=== PATIENT | male | born 1970 | race Caucasian/White ===

== ENCOUNTER 2017-08-09 13:48 | Observation (INO) | payer OTHER ==
--- NOTE | 2017-08-09 14:04 | CPEKG ---
Heart Rate: 68 RR Interval: 882 P-R Interval: 132 QRSD Interval: 82 QT Interval: 368 QTC Interval: 392 P [place]: 33 QRS [place]: 29 T Wave [place]: -4 EKG Severity - BORDERLINE ECG - EKG Impression: SINUS RHYTHM EKG Impression: BORDERLINE T ABNORMALITIES, INFERIOR LEADS Electronically Signed By: Michoacano Marion 09-Aug-2017 14:15:34
--- NOTE | 2017-08-09 14:11 | CPEKG ---
Heart Rate: 80 RR Interval: 750 P-R Interval: 140 QRSD Interval: 78 QT Interval: 372 QTC Interval: 430 P [place]: 34 QRS [place]: 25 T Wave [place]: 1 EKG Severity - NORMAL ECG - EKG Impression: SINUS RHYTHM Electronically Signed By: Michoacano Marion 09-Aug-2017 14:16:15
[2017-08-09] MEDS ORDERED: NS 500 ML IV ONE (14:18)
--- NOTE | 2017-08-09 14:21 | EDPHY ---
H & P Stated Complaint: CP and palipitations, abnormal stress test yesterday Time Seen by Provider: 08/09/17 13:52 HPI/ROS: CHIEF COMPLAINT: Chest discomfort, shortness of breath, irregular heart rate HISTORY OF PRESENT ILLNESS: Patient is a 46-year-old healthy man who was called in by his primary is office. The patient has had abnormal shortness of breath and chest "soreness" for about a week. He had an EKG done the office that showed new T-wave abnormalities compared to 1 year previous. He did had a treadmill stress test and yesterday is read as abnormal with inferior depressions during exercise. He was asymptomatic at that time and so follow-up testing with a nuclear scan was recommended however this morning he developed some minor chest pain and lightheadedness he felt that his heartbeat was irregular. He called his primary Dr. Quiles is office and was told to come to the ER. He took aspirin prior to arrival. REVIEW OF SYSTEMS: Constitutional: denies: chills, fever, recent illness, recent injury EENTM: denies: blurred vision, double vision, nose congestion Respiratory: denies: cough, shortness of breath Cardiac: See HPI Gastrointestinal/Abdominal: denies: abdominal pain, diarrhea, nausea, vomiting, blood streaked stools Genitourinary: denies: dysuria, frequency, hematuria, pain Musculoskeletal: denies: joint pain, muscle pain Skin: denies: lesions, rash, jaundice, bruising Neurological: denies: headache, numbness, paresthesia, tingling, dizziness, weakness Hematologic/Lymphatic: denies: blood clots, easy bleeding, easy bruising Immunologic/allergic: denies: HIV/AIDS, transplant EXAM: GENERAL: Well-appearing, well-nourished and in no acute distress. HEAD: Atraumatic, normocephalic. EYES: Pupils equal round and reactive to light, extraocular movements intact, sclera anicteric, conjunctiva are normal. ENT: TMs normal, nares patent, oropharynx clear without exudates. Moist mucous membranes. NECK: Normal range of motion, supple without lymphadenopathy or JVD. LUNGS: Breath sounds clear to auscultation bilaterally and equal. No wheezes rales or rhonchi. HEART: Regular rate and rhythm without murmurs, rubs or gallops. ABDOMEN: Soft, nontender, normoactive bowel sounds. No guarding, no rebound. No masses appreciated. BACK: No CVA tenderness, no spinal tenderness, step-offs or deformities EXTREMITIES: Normal range of motion, no pitting or edema. No clubbing or cyanosis. NEUROLOGICAL: Cranial nerves II through XII grossly intact. Normal speech, normal gait. 5/5 strength, normal movement in all extremities, normal sensation PSYCH: Normal mood, normal affect. SKIN: Warm, dry, normal turgor, no visible rashes or lesions. Source: Patient Exam Limitations: No limitations - Personal History Current Tetanus/Diphtheria Vaccine: Yes Current Tetanus Diphtheria and Acellular Pertussis (TDAP): Yes Tetanus Vaccine Date: < 10 years - Medical/Surgical History Hx Asthma: No Hx Chronic Respiratory Disease: No Hx Diabetes: No Hx Cardiac Disease: No Hx Renal Disease: No Hx Cirrhosis: No Hx Alcoholism: No Hx HIV/AIDS: No Hx Splenectomy or Spleen Trauma: No Other PMH: DVTs - Family History Significant Family History: No pertinent family hx - Social History Smoking Status: Never smoked Alcohol Use: Sober Drug Use: None Constitutional: Initial Vital Signs Temperature (C) 37 C 08/09/17 13:51 Heart Rate 93 08/09/17 13:51 Respiratory Rate 18 08/09/17 13:51 Blood Pressure 132/102 H 08/09/17 13:51 O2 Sat (%) 95 08/09/17 13:51 O2 Delivery Mode Room Air Allergies/Adverse Reactions: Sulfa (Sulfonamide Antibiotics) Allergy (Severe, Verified 08/09/17 15:14) Rash heparin Allergy (Verified 08/09/17 15:14) Home Medications: Medication Instructions Recorded Aspirin EC [Aspirin EC 325 mg (*)] 325 mg PO DAILY PRN 08/09/17 Ibuprofen [Motrin (*)] 400 mg PO BID PRN 08/09/17 Typhoid Vacc,Live,Attenuated 1 each PO Q2D 08/09/17 [Vivotif] Medical Decision Making - Diagnostics EKG Interpretation: An EKG obtained and was read and documented in trace view. Please see trace view for full reading and report. Sinus rhythm, poor baseline, difficult to tell possible ST-elevation in lead the V3. T-wave inversions inferiorly. A repeat EKG obtained and was read and documented in trace view. Please see trace view for full reading and report. Sinus rhythm, no ST elevation. A repeat EKG obtained and was read and documented in trace view. Please see trace view for full reading and report. Sinus rhythm, no ST elevation Imaging Results: Imaging Impressions Chest X-Ray 08/09/17 14:19 Impression: Hypoventilatory chest with no acute findings. Imaging: Discussed imaging studies w/ call or contact centre coach Radiologist ED Course/Re-evaluation: 2:50 p.m. the patient is currently asymptomatic. I discussed this case with Dr. Kc who was willing to admit but suggest that if it is possible we could do the catheterization now rather than wait till tomorrow. I will call Cardiology to discuss 3:09 p.m. I discussed the case with Dr. Татьяна Meredith. The patient has not been NPO today and so they preferred to do a catheterization tomorrow rather than late in the evening on a Friday. 4:20 p.m. the patient got up to go to the bathroom and upon returning began complaining of some squeezing in his chest. We will perform a repeat EKG and administer nitroglycerin. Differential Diagnosis: Partial list of the Differential diagnosis considered include but were not limited to; acute coronary disease, arrhythmia, anxiety and although unlikely based on the history and physical exam, I also considered PE, dissection, pneumonia. - Data Points Laboratory Results: Laboratory Results 08/09/17 14:05 08/09/17 14:05 08/09/17 08/09/17 08/09/17 14:05 14:05 14:05 WBC 7.30 10^3/uL 10^3/uL (3.80-9.50) RBC 4.80 10^6/uL 10^6/uL (4.40-6.38) Hgb 15.5 g/dL g/dL (13.7-17.5) Hct 43.8 % % (40.0-51.0) MCV 91.3 fL fL (81.5-99.8) MCH 32.3 pg pg (27.9-34.1) MCHC 35.4 g/dL g/dL (32.4-36.7) RDW 12.7 % % (11.5-15.2) Plt Count 215 10^3/uL 10^3/uL (150-400) MPV 11.1 fL fL (8.7-11.7) Neut % (Auto) 68.1 % % (39.3-74.2) Lymph % (Auto) 20.1 % % (15.0-45.0) [place] % (Auto) 8.1 % % (4.5-13.0) Eos % (Auto) 2.6 % % (0.6-7.6) Baso % (Auto) 1.0 % % (0.3-1.7) Nucleat RBC Rel Count 0.0 % % (0.0-0.2) Absolute Neuts (auto) 4.97 10^3/uL 10^3/uL (1.70-6.50) Absolute Lymphs (auto) 1.47 10^3/uL 10^3/uL (1.00-3.00) Absolute Monos (auto) 0.59 10^3/uL 10^3/uL (0.30-0.80) Absolute Eos (auto) 0.19 10^3/uL 10^3/uL (0.03-0.40) Absolute Basos (auto) 0.07 10^3/uL 10^3/uL (0.02-0.10) Absolute Nucleated RBC 0.00 10^3/uL 10^3/uL (0-0.01) Immature Gran % 0.1 % % (0.0-1.1) Immature Gran # 0.01 10^3/uL 10^3/uL (0.00-0.10) PT 13.3 SEC SEC (12.0-15.0) INR 0.99 (0.83-1.16) APTT 26.5 SEC SEC (23.0-38.0) Sodium 145 mEq/L mEq/L (135-145) Potassium 4.7 mEq/L mEq/L (3.5-5.2) Chloride 108 mEq/L mEq/L (97-110) Carbon Dioxide 22 mEq/l mEq/l (22-31) Anion Gap 15 mEq/L mEq/L (8-16) BUN 19 mg/dL mg/dL (7-23) Creatinine 1.2 mg/dL mg/dL (0.7-1.3) Estimated GFR > 60 Glucose 100 mg/dL mg/dL (70-100) Calcium 9.8 mg/dL mg/dL (8.5-10.4) Troponin I < 0.012 ng/mL ng/mL (0.000-0.034) Medications Given: Nitroglycerin (Nitrostat) 0.4 mg SL PRN PRN PRN Reason: Chest Pain Stop: 02/05/18 16:03 Last Admin: 08/09/17 16:34 Dose: 0.4 mg Discontinued Medications Sodium Chloride (Ns) 500 mls @ 1,000 mls/hr IV EDNOW ONE PRN Reason: Protocol Stop: 08/09/17 14:47 Last Admin: 08/09/17 14:35 Dose: 500 mls Departure - Departure Disposition: [facility] Inpatient Acute Clinical Impression: Chest pain Qualifiers: Chest pain type: unspecified Qualified Code(s): R07.9 - Chest pain, unspecified Condition: Fair
[2017-08-09 14:26] LABS: PLATELET COUNT 215 10^3/uL (150-400)
[2017-08-09 14:31] LABS: INR 0.99 (0.83-1.16); PROTIME(PATIENT) 13.3 SEC (12.0-15.0)
[2017-08-09] MEDS ORDERED: ACETAMINOPHEN 325 MG TAB PO PRN (16:04)
[2017-08-09] MEDS ORDERED: NITROGLYCERIN 0.4 MG BTL SL PRN (16:04)
[2017-08-09] MEDS ORDERED: TEMAZEPAM 15 MG CAP PO PRN (16:04)
--- NOTE | 2017-08-09 16:25 | CPEKG ---
Heart Rate: 56 RR Interval: 1071 P-R Interval: 144 QRSD Interval: 82 QT Interval: 412 QTC Interval: 398 P [place]: 20 QRS [place]: 24 T Wave [place]: -6 EKG Severity - BORDERLINE ECG - EKG Impression: SINUS RHYTHM EKG Impression: BORDERLINE T ABNORMALITIES, INFERIOR LEADS Electronically Signed By: Michoacano Marion 09-Aug-2017 16:29:50
--- NOTE | 2017-08-09 22:38 | PDGENHP ---
History and Physical History and Physical: CC: Chest pain HISTORY: This patient comes into the ER today for evaluation of chest pain. He started having a chest pain syndrome approximately 2 weeks ago. The syndrome has consisted of intermittent episodes of a vaguely described pressure-type sensation in the area of the left clavicle at sometimes and at the left sternal border anteriorly at other times. Is never brought on by exertion. It sometimes is made worse when he is lying down and in fact he has it now this evening when he is lying down and as he sits up and lies back down again to eat dinner this evening it gets better up and worse again lying down. It takes tender 15 min for this change to occur. It has been something that has been increasing in frequency and duration and has been present for most of today. Is not aggravated by any particular food or beverage. There is no odynophagia. There is no pleuritic component, dyspnea, cough or fever, upper respiratory symptoms, leg pain or swelling, palpitations. He has never had this particular syndrome in the past. He says this feels quite different than what he describes as functional dyspepsia and irritable bowel syndrome which he blames on a past history of typhoid fever. He was seen in the cardiology clinic 2 days ago and did an exercise treadmill stress test where he went to 10 min without any symptoms, though it is reported that there was some ST segment abnormalities on that stress test. There were plans to have him come black a later for a myocardial perfusion scan test, however as he was having worsening pain at rest today he was route recommended for admission to the hospital for further evaluation. He has no history of heart disease and has never worked with a personal injury attorney before. He is not diabetic or hypertensive and he has had what he recalls as most recently normal cholesterol blood test. He has never been a smoker. He has 1 cousin who had an [place] in his 50s and an aunt who had angina in her late 70s. ROS: A comprehensive 10 system review revealed no other significant findings PAST MEDICAL HISTORY: Typhoid fever FAMILY MEDICAL HISTORY: Heart disease as above SOCIAL HISTORY: lives with his and kids. No tobacco alcohol or drugs Is a software product specialist for apps MEDICATIONS: The patients list has been reconciled by our clinical pharmacist in the EMR. I have reviewed the list and ordered appropriate medicines. PHYSICAL EXAMINATION: Vital Signs: Stable without fever Accounting Administrator: Sinus rhythm Examination: General: alert, oriented, good mentation, relaxed Skin: warm, dry, good color, no rash HEENT: normal Neck: no mass or jvd Resps: relaxed Lungs: clear breath sounds Heart: regular, no murmur Abdomen: soft, nondistended, nontender, +BS, no mass Upper Extremities: normal Lower Extremities: no edema, warm No Bleeding or bruising Neurologic: normal speech/language, normal anode adjuster, no focal weakness IV site: looks normal LABORATORY DATA: 1st troponin normal, Chem panel normal, CBC unremarkable RADIOLOGY STUDIES: Chest x-ray done in the ER, my review of the images: Normal chest x-ray without any evidence of heart, vascular, lung, pleural, or skeletal disease 12 LEAD EKG: There are 3 12 lead EKGs done in the ER and I reviewed all 3 of them, they all show a sinus rhythm. The QRSs are narrow and of normal axis and morphology. The T-wave is inverted in lead 3 however there is a negative QRS voltage in that lead. All the other ST segments and T-waves are normal in appearance. Nothing to suggest ischemia or injury ASSESSMENT: 1- chest pain syndrome, new onset 2 weeks ago with some features suggesting possible angina, and progression in terms of frequency duration and severity over this 2 weeks now with ongoing rest pain. He did have an abnormal treadmill stress test 2 days ago with some EKG changes but without symptoms or other concerning features. At this point he comes in with no heart failure or arrhythmia, 1st normal troponin, and nothing impressive on his 1st 3 EKGs done in the ER. Vital signs are stable. There are actually some features of this syndrome or suggestive of an esophageal problem such as reflux or spasm. The fact that is aggravated by supine position and was given some very brief relief by eating a bland meal would potentially go along with a reflux issue. He does drink 3 alcohol drinks daily which could aggravate reflux. The patient has been sent in for admission and the cardiology service is aware of his situation and plans on angiography tomorrow morning. Will for now watch him on cardiac monitoring, with aspirin administered tonight , and he is aware to report any worsening of symptoms Continue vital sign monitoring. If he does not have any abnormalities on his angiography would recommend a trial of proton pump inhibitor, discontinuation of alcohol and other dietary measures for reflux and see if this relieves of symptoms. He is appropriate for observation status at this time but that may need to change depending on his symptom progress and what is seen on angiography I have reviewed the patient's case in detail with Dr. Michoacano Marion
[2017-08-10] MEDS ORDERED: FAMOTIDINE 20 MG TAB PO ONE (06:00)
[2017-08-10] MEDS ORDERED: NS 1,000 ML IV ONE (06:00)
[2017-08-10] MEDS ORDERED: ASPIRIN EC 325 MG TAB PO ONE (06:00)
[2017-08-10] MEDS ORDERED: DIAZEPAM 5 MG TAB PO ONE (06:00)
[2017-08-10] MEDS ORDERED: diphenhydrAMINE 25 MG CAP PO ONE (06:00)
--- NOTE | 2017-08-10 07:55 | PDPROPOC ---
Sedation Plan of Care Sedation Plan of Care: vital signs stable, mental status noted, patient educated of risks, benefits, alternatives, patient can tolerate sedation ASA Classification: ASA 1 Planned drugs: fentanyl, midazolam Mallampati Score: Class 2 Mallampati Reference Image: Patient passed 3-3-2 rule?: Yes
--- NOTE | 2017-08-10 07:55 | PDHPUP ---
History & Physical Update H&P update statement: This history and physical update is based on an assessment of the patient which was completed after admission or registration (within 24 hours), but prior to the surgery/procedure. H&P update: H&P reviewed & patient examined, no change in patient's condition since H&P completed
--- NOTE | 2017-08-10 08:27 | CPEKG ---
Heart Rate: 73 RR Interval: 822 P-R Interval: 152 QRSD Interval: 78 QT Interval: 388 QTC Interval: 428 P [place]: 30 QRS [place]: 29 T Wave [place]: -3 EKG Severity - NORMAL ECG - EKG Impression: SINUS RHYTHM EKG Impression: BORDERLINE INFERIOR T-WAVE ABNORMALITIES. EKG Impression: COMPARED WITH 08/09/2017 AT 4:22 P.M. NO SIGNIFICANT CHANGE Electronically Signed By: Татьяна Meredith 10-Aug-2017 13:20:23
[2017-08-10] MEDS ORDERED: METOPROLOL TARTRATE 25 MG TAB PO ONE ×2 (08:56→11:00)
--- NOTE | 2017-08-10 09:33 | GCON ---
[f rep st] CONSULTATION CARDIOLOGY CONSULT DATE OF CONSULTATION: 08/10/2017 PRIMARY CARE: ZA Pearson and Ehsan Quiles MD CHIEF COMPLAINT: Chest pain. HISTORY OF PRESENT ILLNESS: We were asked by Dr. Kc to visit with the patient. The patient is a pleasant 46-year-old male with no known cardiovascular disease. Over the past couple of weeks, he h as had intermittent chest discomfort. He reports that most of his symptoms are nocturnal and that ly ing down makes him feel poorly. He has pressure on the left side of his chest. This does not occur with exercise and he exercises vigorously, doing calisthenics and biking. He feels that his heart nguyen s been pounding a little bit more than he would expect. He has had positional lightheadedness withou t syncope. No lower extremity edema. He does have a history of DVT after a foot fracture 3 years ago. He injected himself with Lovenox fo r treatment and had throat closing with this that required Benadryl treatment. He has not had any ca lf pain or as mentioned, left lower extremity swelling recently. He does have chronic issues with GI distress and diarrhea since penny typhoid fever few years ago. He is under significant amount of stress in his personal life. He had a treadmill test in our office 2 days ago notable for excellent exercise tolerance and no exer tional chest pain. I have personally reviewed this study. He had equivocal ST depression and no arr hythmia. It was recommended that he proceed with exercise nuclear stress testing early this week; ho wever, he had recurrent chest discomfort, so presented to the ER and was admitted overnight. Serial troponins have been negative. D-dimer 2 days ago was negative. He is currently not having chest annabel n. REVIEW OF SYSTEMS: A full 10-point review of systems is performed and is negative, except that which is outlined in history of present illness. ALLERGIES: Sulfa. Lovenox causes throat closing. PAST MEDICAL HISTORY: 1. DVT that occurred after a foot fracture. He was treated with aspirin. 2. Typhoid fever. 3. History of shoulder dislocation. 4. Status post hypospadias repair as a child. 5. Status post shoulder arthroscopy. OUTPATIENT MEDICATIONS: 1. Aspirin p.r.n. flying. 2. Ibuprofen p.r.n. SOCIAL HISTORY: The patient is and has a child. He is a software solutions architect. He does not sm susie cigarettes. He drinks about 12 alcoholic beverages weekly. FAMILY HISTORY: Cousin had an [place] at age 54. Uncle and father both had strokes. PHYSICAL EXAMINATION: VITAL SIGNS: Blood pressure 116/73, heart rate 87, oxygen saturation 93% on r oom air. GENERAL: Well-appearing middle-aged male in no acute distress. HEENT: Sclerae are clear and free of jaundice. Mucous membranes are moist. Normocephalic, atraumatic. CARDIOVASCULAR: JVP is less than 10. Carotids equal and 2+ without bruit. Regular rate and rhythm without murmur, rub, or gallop. LUNGS: Clear to auscultation without wheezes, rhonchi, or rales. ABDOMEN: Soft, nonten teresa, nondistended, without bruits, masses, or hepatosplenomegaly. EXTREMITIES: Warm and well perfus ed without cyanosis, clubbing, or edema. CHEST: There is no tenderness to palpation over his chest, specifically left parasternal region. NEURO: Alert and oriented x3 without gross focal neurologic deficits. Appropriate mood and affect. LABORATORY/IMAGING: CBC is normal. INR normal. Basic metabolic panel normal. Troponin negative x3 . Triglycerides 172, LDL cholesterol 92. Serial EKGs reviewed by me show sinus rhythm with nonspecific inferior T-wave abnormalities. Right chest x-ray reviewed by me: No acute cardiopulmonary process. ASSESSMENT/PLAN: A 46-year-old male with no significant cardiovascular risk factors, presents with c hest pain that is atypical for angina; however, symptoms have been ongoing and he did have an equivoc al stress test in our office 2 days ago. 1. Chest pain: Intermediate probability for coronary etiology. Given the fact that he has had the symptom of throat closing with 1 injection of Lovenox, I do not think that we should subject him to t he heparinized saline that we need to use for coronary angiography; therefore, we will proceed with C T coronary angiography for further risk stratification. This was discussed in detail with the patien t. He had a D-dimer that was negative 2 days ago. We will repeat this now. If CT coronary does not show significant cardiac pathology, we will move toward Gastroenterology evaluation and addition of proton pump inhibitor. We will defer to Internal Medicine regarding this. 2. History of deep venous thrombosis 3 years ago: No lower extremity swelling or calf pain now. Re peat D-dimer. He does take aspirin when he flies. 3. Elevated triglycerides: This can be discussed as an outpatient. Reduce intake of refined carboh ydrates. He also would likely benefit from decreased alcohol intake. Thank you for allowing us to participate in the patient's care. We will follow with him. /[id number]/MODL
[2017-08-10] MEDS ORDERED: IOPAMIDOL (ISOVUE 370) 100 ML BTL IV ONE (11:26)
[2017-08-10 14:07] VITALS: BP 119/85; PULSE 68; RESP 17; TEMP 98.5; O2SAT 94
--- NOTE | 2017-08-10 16:30 | ASMTCMCOM ---
CM Note CM Note Notes: Pt to have CT angio today. Pt will likely not have any DC needs. Date Signed: 08/10/2017 04:29 PM Electronically Signed By:Karol Burr LCSW
--- NOTE | 2017-08-10 17:24 | GDS ---
[f rep st] DISCHARGE SUMMARY NEW AND ACUTE DIAGNOSES: On this admission: 1. Chest pain noncardiac in origin, probable gastrointestinal origin secondary to reflux. 2. Allergy to Lovenox, heparin products. CHRONIC DIAGNOSIS: History of a deep venous thrombosis of his foot 3 years prior to arrival. CONSULTATION: Cardiology. PROCEDURES: Cardiac CT angio showing normal coronary arteries without flow or stenosis or obstructio n. HOSPITAL COURSE: This is a 46-year-old male with children presenting with a complaint of bill st pain. He has a remote history of a DVT of his foot 3 years ago for which he received Lovenox and had an adverse reaction to that. He is not on anticoagulant therapy at the time of this discharge. Two days [employer], he had a treadmill with excellent exercise tolerance and no exertional chest pain. The re was an equivocal ST-segment depression and no arrhythmia. He had been recommended to have a follo wup exercise and nuclear stress test, yet he presented with chest pain and was admitted through the e mergency department and had the subsequent CT coronary angio. The latter study showed no flow obstru ction. He had no rhythm disturbance throughout during his hospitalization. The findings were reviewed with the patient and his . I have reassured him that there is no evid ence at this time, that his chest pain is secondary to coronary disease. He does list a history of s ome dyspepsia and says that PPI medication makes it worse. He reports also eating a very high acid d iet because he says he thinks he has insufficient stomach acid. As a result of this conversation, I feel he should be referred to Gastroenterology and I have made the referral for him. DISCHARGE MEDICATIONS: Will be ibuprofen 400 mg b.i.d. p.r.n. and aspirin 325 mg p.o. daily, when he is flying. PLAN: The gentleman is discharged home. He is on an unrestricted diet. Referral has been made to [facility] and Dr. Michelle Sanderson. His PCP is Dr. Ayad Miles. The followup with GI of the [facility] is in the next 2-4 weeks. Time of the discharge was 45 minutes. All questions of the patient and his were answered. /[id number]/MODL
[2017-08-11] MEDS ORDERED: [UNRECOGNIZED DRUG - OTHER] PO SCH (09:00)
== END 2017-08-10 16:54 | disposition home or self-care (01) ==
LOC: F2W 18:00
PROVIDERS: ADMIT Internal Medicine; ATTEND Internal Medicine Pulmonary Disease
DX: R07.9 Chest pain, unspecified (principal); Z86.19 Personal history of other infectious and parasitic diseases; Z86.718 Personal history of other venous thrombosis and embolism; Z88.2 Allergy status to sulfonamides; Z82.49 Family history of ischemic heart disease and other diseases of the circulatory system
CPT/HCPCS: 71046; 75574; 93005; G0378; Q9967